=== PATIENT | male | born 1985 | race Caucasian/White ===

== ENCOUNTER 2019-03-28 09:54 | Emergency (ER) | payer SELFPAY ==
[~2019-03-28] VITALS: Ht 188 cm; Wt 119.7 kg
[2019-03-28 10:16] VITALS: BP 158/94
--- NOTE | 2019-03-28 10:26 | NUR ---
Pt ambulated to bed 7.
--- NOTE | 2019-03-28 10:34 | NUR ---
ASSESSMENT COMPLETED WITH PATIENT IN BED, SIDE RAIL UP ON ONE SIDE, BED LOW AND LOCKED. PATIENT STATES HE WAS "GRINDING METAL" LAST NIGHT AND SOME FLEW INTO HIS LEFT EYE. MILD REDNESS SEEN IN LEFT EYE. NO CHANGES IN VISON. PUPILS EQUAL AND REACTIVE. NO DISCHARGE NOTED FROM EYE AT THIS TIME. PATIENT STATES LAST NIGHT AFTER IT HAPPENED HIS EYE WAS BURNING AND WATERING A LOT. PATIENT STATES HIS EYE IS STILL BURNING. DENEIS FEVER, NVD, COUGH, BODY ACHES OR ANY OTHER MEDICAL SYMPTOMS.
--- NOTE | 2019-03-28 10:43 | NUR ---
Dr. Modi is evaluating the patient at bedside.
[2019-03-28] MEDS ORDERED: FLUORESCEIN OPTH STRIP 1 MG OP ONE (10:45)
[2019-03-28] MEDS ORDERED: TETRACAINE HCL/PF 0.5% OPTH 4 ML BTL OP ONE (10:45)
--- NOTE | 2019-03-28 11:55 | NUR ---
Dr. Modi at bedside for procedure.
[2019-03-28] MEDS ORDERED: ERYTHROMYCIN 0.5% OPTH OINT 1 GM TUBE OP ONE (12:00)
--- NOTE | 2019-03-28 12:22 | NUR ---
MEDICATED PER [facility] ORDER. TOLERATED WELL.
[2019-03-28 12:40] VITALS: BP 158/94
--- NOTE | 2019-03-28 12:40 | NUR ---
Patient discharged with v/s stable. Written and verbal after care instructions given and explained. Patient alert, oriented and verbalized understanding of instructions. Ambulatory with steady gait. All questions addressed prior to discharge. ID band removed. Patient advised to follow up with PMD. Rx of Percocet 5mg-325mg and Erythromycin 0.5% given. Work excuse provided for today and tomorrow. Pt instructed to not drive while taking Percocet. Patient educated on indication of medication including possible reaction and side effects. Opportunity to ask questions provided and answered.
== END 2019-03-28 12:40 | disposition home or self-care (01) ==
LOC: MED 09:54
DX: T15.02XA Foreign body in cornea, left eye, initial encounter (principal); X58.XXXA Exposure to other specified factors, initial encounter; Y93.89 Activity, other specified; Y92.89 Other specified places as the place of occurrence of the external cause; Y99.8 Other external cause status; I10 Essential (primary) hypertension
CPT/HCPCS: 65222; 99284